=== PATIENT | male | born 1960 | race Caucasian/White ===

== ENCOUNTER → 2020-10-13 | Outpatient (REF) ==
--- NOTE | 2020-10-17 15:52 | SLEEPHOME ---
DATE: 10/13/2020 ORDERED BY: Last Beckett This was a test from [facility]. Diagnostic home sleep testing was performed due to concern for the obstructive sleep apnea syndrome. For testing, a nocturnal T3 respiratory monitoring device was used. Continuous record was made of pulse, oxygen saturation, air flow, chest and abdominal strain, and body position. There was 6 hours and 59 minutes of data reviewed. There was 6 hours and 52 minutes marked as time in bed. During the interval marked time in bed, there were 49 respiratory events identified of 10 seconds in duration or greater for a respiratory event index of 7.1. The events were primarily obstructive. Baseline pulse rate 76 beats per minute. Pulse rate ranged 59-110. Baseline saturation was 88%. Saturations fell to 68%. The pattern was variable. IMPRESSION: Abnormal home sleep testing with repetitive respiratory events and oxygen desaturations to 68% with a respiratory event index of 7.1 is consistent with the obstructive sleep apnea syndrome. RECOMMENDATION: The patient should be encouraged to undergo formal sleep evaluation and would be a good candidate for in-laboratory pressure titration given the profound oxygen desaturation seen.
== END ==
LOC: M SLEEP HO 10-09 10:00
DX: R09.02 Hypoxemia (principal); I25.5 Ischemic cardiomyopathy

== ENCOUNTER → 2021-12-23 | Outpatient (REF) | LOC: M LABCFH 17:10 | DX: Z01.89 Encounter for other specified special examinations (principal) ==

== ENCOUNTER → 2022-08-18 | Outpatient (CLI) | payer MEDICARE, BC | LOC: M SOG 08:06 | PROVIDERS: ATTEND Orthopaedic Surgery | DX: M25.552 Pain in left hip (principal) ==

== ENCOUNTER → 2022-08-25 | Outpatient (CLI) | payer BC, MEDICARE | LOC: M SOG 07:58 | PROVIDERS: ATTEND Orthopaedic Surgery | DX: M25.552 Pain in left hip (principal) ==

== ENCOUNTER → 2022-08-30 | Outpatient (CLI) | payer BC, MEDICARE | LOC: M PLAIMG 10:33 | PROVIDERS: ATTEND Orthopaedic Surgery | DX: M16.12 Unilateral primary osteoarthritis, left hip (principal) ==

== ENCOUNTER → 2022-12-05 | Outpatient (CLI) | payer BC, MEDICARE ==
[~2022-12-05] MED LIST: ALBU2.5V10 INH; AMIO200T49 PO; APAP500T10 PO; CLOP75TA99 PO; ELIQ5TAB PO; FLOM0.4C39 PO; FURO40TA2 PO; GABA-282 PO; METO50TA7 PO; OXYC1TAB23 PO; PANT40TA29 PO; ROPI2TAB3 PO; ROSU40TA4 PO; SPIR1CAP INH; SYMB16INH INH; SYNT137T7 PO; VENTAER INH
== END ==
LOC: M RAD 11:08
PROVIDERS: ATTEND Orthopaedic Surgery
DX: M87.052 Idiopathic aseptic necrosis of left femur (principal)

== ENCOUNTER → 2022-12-13 | Outpatient (CLI) | payer BC, MEDICARE | LOC: M LABSMTC 10:16 | PROVIDERS: ATTEND Anesthesiology | DX: Z01.812 Encounter for preprocedural laboratory examination (principal); Z11.52 Encounter for screening for COVID-19 ==

== ENCOUNTER 2022-12-18 09:35 | Observation (INO) | payer BC, MEDICARE ==
[~2022-12-18] VITALS: Ht 172.7 cm; Wt 92.9 kg
[~2022-12-18 09:35] MED LIST changes: +LIDOCAINE 2% 100MG/5ML SDV (FOR ANES.) As Ordered ONE; +MIDAZOLAM INJ 2MG/2ML VIAL As Ordered ONE; +ONDANSETRON 4MG 2ML VIAL As Ordered ONE; +ROCURONIUM BROMIDE 50MG/5ML VIAL As Ordered ONE; +ROPIVA 100MG/KETOR 15MG/EPINEPHRINE 0.3MG IN NS 50ML SYRINGE PA ONE; +TRANEXAMIC ACID INJection 1,000 MG in NS 100 ML IV ONE; +ceFAZolin SOD 2 GM in IV 1 EA IV ONE; +fentaNYL 250 MCG/5 ML INJECTION As Ordered ONE; +oxyCODONE 5MG TAB PO ONE; +propofoL 200 MG/20 ML VIAL As Ordered ONE
[2022-12-18] MEDS ORDERED: LR 1,000 ML IV SCH ×2 (10:00→15:55)
[2022-12-18] MEDS ORDERED: METF500T13 PO (10:39)
[2022-12-18] MEDS ORDERED: ECOT81TA5 PO (10:39)
[2022-12-18] MEDS ORDERED: METO1TAB7 PO (10:39)
[2022-12-18] MEDS ORDERED: JARD1TAB PO (11:12)
[2022-12-18] MEDS ORDERED: D 101000 PO (11:12)
[2022-12-18] MEDS ORDERED: VALS1TAB66 PO (11:12)
[2022-12-18] MEDS ORDERED: ROPI0.253 PO (11:12)
[2022-12-18] MEDS ORDERED: SPIR-10 PO (11:12)
[2022-12-18] MEDS ORDERED: HOME MED LIST COMPLETE! XX SCH (11:15)
[2022-12-18] MEDS ORDERED: BUPIVACAINE/EPIN 0.25% 30ML VIAL As Ordered ONE (11:59)
[2022-12-18] MEDS ORDERED: TRANEXAMIC ACID 100 MG/ML 10ML VIAL As Ordered ONE (12:00)
[2022-12-18] MEDS ORDERED: VANCOMYCIN 1000MG/20ML VIAL As Ordered ONE (12:00)
[2022-12-18] MEDS ORDERED: KETAMINE HCL 200MG/20ML VIAL As Ordered ONE (12:27)
[2022-12-18] MEDS ORDERED: SUGAMMADEX SODIUM 500 MG/5 ML VIAL (BRIDION) As Ordered ONE (13:43)
[2022-12-18] MEDS ORDERED: ePHEDrine SULFATE 25 MG/5 ML(5MG/ML) SYRINGE As Ordered ONE (13:43)
[2022-12-18] MEDS ORDERED: HYDROmorphone HCL 2MG/ML 1ML VIAL As Ordered ONE (13:43)
[2022-12-18] MEDS ORDERED: ACETAMINOPHEN 1000MG 100ML IV BAG As Ordered ONE (13:48)
[2022-12-18] MEDS ORDERED: ROCURONIUM BROMIDE 50MG/5ML VIAL As Ordered ONE ×2 (13:57→14:20)
[2022-12-18] MEDS ORDERED: PHENYLephrine 500MCG 5ML (100MCG/ML) SYRINGE As Ordered ONE (14:47)
[2022-12-18] MEDS ORDERED: ESMOLOL INJ 100MG/10ML VIAL As Ordered ONE (15:32)
[2022-12-18] MEDS ORDERED: fentaNYL 100 MCG/2 ML INJECTION IV PRN (15:55)
[2022-12-18] MEDS ORDERED: PERCOCET 5MG/325MG TAB PO PRN (15:55)
[2022-12-18] MEDS ORDERED: ALBUTEROL SULFATE 2.5MG/0.5ML INH NEB SOLN INH PRN (15:55)
[2022-12-18] MEDS ORDERED: ALBUTEROL 90 MCG/ACT 8GM HFA INHALER INH PRN (15:55)
[2022-12-18] MEDS ORDERED: ONDANSETRON 4MG 2ML VIAL IV PRN ×2 (15:55)
[2022-12-18] MEDS ORDERED: oxyCODONE 5MG TAB PO PRN (15:55)
[2022-12-18] MEDS ORDERED: DEXTROSE 50% 50ML SYRINGE IV PRN (16:05)
[2022-12-18] MEDS ORDERED: GLUCAGON INJ 1MG VIAL SC PRN (16:05)
[2022-12-18] MEDS ORDERED: GLUCOSE 4GM CHEW TABLET PO PRN (16:05)
[2022-12-18] MEDS: HYDROMORPHONE HCL 0.5 MG/ 0.5 ML SYRINGE IV PRN ×2 (16:17→16:25)
[2022-12-18] MEDS ORDERED: SENNA 8.6 MG TAB (SENOKOT) PO PRN (16:35)
[2022-12-18 17:15] VITALS: BP 121/85
[2022-12-18 17:45] VITALS: BP 126/78
[2022-12-18] MEDS: INSULIN LISPRO (NovoLOG) PER UNIT SC SCH (17:51)
[2022-12-18 18:45] VITALS: BP 124/85
[2022-12-18 19:47] VITALS: BP 122/85
[2022-12-18] MEDS: ceFAZolin SOD 2 GM in IV 1 EA IV SCH (20:27)
[2022-12-18] MEDS: DOCUSATE SODIUM 100MG CAPSULE PO SCH (20:28)
[2022-12-18] MEDS: ACETAMINOPHEN TAB 650MG DOSE (2X325MG) PO PRN (20:28)
[2022-12-18 20:51] VITALS: BP 123/84
[2022-12-18] MEDS ORDERED: INSULIN LISPRO (NovoLOG) PER UNIT SC SCH (21:00)
[2022-12-18] MEDS ORDERED: APIXABAN 5 MG TAB (ELIQUIS) PO SCH (21:00)
[2022-12-18] MEDS ORDERED: ROSUVASTATIN 10 MG TAB (CRESTOR) PO SCH (21:00)
[2022-12-18] MEDS ORDERED: rOPINIRole 0.25 MG TAB(REQUIP) PO SCH (21:00)
[2022-12-18 21:57] VITALS: BP 91/65
[2022-12-19] MEDS: PERCOCET 5MG/325MG TAB PO PRN ×2 (01:41→16:41)
[2022-12-19 02:33] VITALS: BP 102/65
[2022-12-19 03:24] VITALS: O2SAT 96
[2022-12-19] MEDS: ceFAZolin SOD 2 GM in IV 1 EA IV SCH (05:20)
[2022-12-19 06:00] VITALS: BP 102/64
[2022-12-19] MEDS ORDERED: LEVOTHYROXINE 137MCG TABLET (0.137MG) PO SCH (06:00)
[2022-12-19 06:04] LABS: HEMATOCRIT 37.5 % (42.0-52.0); HEMOGLOBIN 12.6 g/dl (13.5-17.5); MEAN CORPUSCULAR HEMOGLOBIN 30.7 pg (27.0-33.0); MEAN CORPUSCULAR HGB CONC 33.6 g/dl (32.0-36.5); MEAN CORPUSCULAR VOLUME 91.5 fl (80.0-96.0); PLATELET COUNT, AUTOMATED 197 10^3/uL (150-450); WHITE BLOOD COUNT 17.4 10^3/uL (4.0-10.0)
[2022-12-19 06:18] LABS: INR 1.18; PROTHROMBIN TIME 15.2 SECONDS (12.5-14.5)
[2022-12-19] MEDS: ACETAMINOPHEN TAB 650MG DOSE (2X325MG) PO PRN (06:25)
[2022-12-19 06:45] LABS: ALBUMIN 3.3 G/DL (3.2-5.2); ALKALINE PHOSPHATASE 65 U/L (46-116); ALT/SGPT 32 U/L (7.0-40); AST/SGOT 35 U/L (<34); BILIRUBIN,TOTAL 0.5 MG/DL (0.3-1.2); BLOOD UREA NITROGEN 33 MG/DL (9-23); CALCIUM LEVEL 9.4 MG/DL (8.3-10.6); CARBON DIOXIDE LEVEL 23 MMOL/L (20-31); CHLORIDE LEVEL 105 MMOL/L (98-107); CREATININE FOR GFR 1.12 MG/DL (0.70-1.30); GLOMERULAR FILTRATION RATE > 60.0 (>49); GLUCOSE, FASTING 189 MG/DL (74-106); POTASSIUM SERUM 4.3 MMOL/L (3.5-5.1); SODIUM LEVEL 137 MMOL/L (136-145); TOTAL PROTEIN 6.1 G/DL (5.7-8.2)
[2022-12-19] MEDS ORDERED: PERCOCET 5MG/325MG TAB PO ONE (07:10)
[2022-12-19] MEDS ORDERED: KETOROLAC 30 MG/ML 1ML VIAL IV ONE (07:10)
[2022-12-19] MEDS ORDERED: MIRA3350 PO (07:14)
[2022-12-19] MEDS ORDERED: SENO8.6T10 PO (07:14)
[2022-12-19] MEDS ORDERED: PERCOCET PO (07:14)
[2022-12-19] MEDS ORDERED: MOM30SS2 PO (07:14)
[2022-12-19] MEDS: DOCUSATE SODIUM 100MG CAPSULE PO SCH (08:23)
[2022-12-19] MEDS: INSULIN LISPRO (NovoLOG) PER UNIT SC SCH ×2 (08:27→12:53)
[2022-12-19 08:38] VITALS: BP 128/70
[2022-12-19] MEDS ORDERED: FERROUS SULFATE 325MG TAB PO SCH (09:00)
[2022-12-19] MEDS ORDERED: AMIODARONE 100MG TABLET (PACERONE) PO SCH (09:00)
[2022-12-19] MEDS ORDERED: SENOKOT S TAB PO SCH (09:00)
[2022-12-19] MEDS ORDERED: APIXABAN 5 MG TAB (ELIQUIS) PO SCH (09:00)
[2022-12-19] MEDS ORDERED: ASCORBIC ACID 500 MG TAB PO SCH (09:00)
[2022-12-19] MEDS ORDERED: CLOPIDOGREL 75 MG TAB PO SCH (09:00)
[2022-12-19] MEDS ORDERED: SPIRONOLACTONE 25 MG TAB PO SCH (09:00)
[2022-12-19] MEDS ORDERED: PANTOPRAZOLE 40MG TAB (PROTONIX) PO SCH (09:00)
[2022-12-19] MEDS ORDERED: METOPROLOL SUCC (TopROL XL) 50MG **XL** TAB PO SCH (09:00)
[2022-12-19] MEDS ORDERED: VALSARTAN 80 MG TAB (DIOVAN) PO SCH (09:00)
[2022-12-19] MEDS ORDERED: FUROSEMIDE 40 MG TAB PO SCH (09:00)
[2022-12-19 14:00] VITALS: BP 113/64
== END 2022-12-19 17:40 | disposition home or self-care (01) ==
LOC: M SDC 09:35 → M MS5PR 09:36
PROVIDERS: ADMIT Orthopaedic Surgery; ATTEND Orthopaedic Surgery
DX: M87.852 Other osteonecrosis, left femur (principal); I48.91 Unspecified atrial fibrillation; I50.9 Heart failure, unspecified; E03.9 Hypothyroidism, unspecified; I11.9 Hypertensive heart disease without heart failure; K70.30 Alcoholic cirrhosis of liver without ascites; K21.9 Gastro-esophageal reflux disease without esophagitis; E11.9 Type 2 diabetes mellitus without complications; G47.33 Obstructive sleep apnea (adult) (pediatric); I25.10 Atherosclerotic heart disease of native coronary artery without angina pectoris; J44.9 Chronic obstructive pulmonary disease, unspecified; Z88.8 Allergy status to other drugs, medicaments and biological substances; Z79.01 Long term (current) use of anticoagulants; Z79.82 Long term (current) use of aspirin; Z79.84 Long term (current) use of oral hypoglycemic drugs
CPT/HCPCS: 27130; 36415; 73502; 76000; 80053; 80069; 85027; 85610; 88304; 88311; 96365; 96366; 97116; 97161; 97165; 97530; 97535; C1776; J0131; J0690; J1100; J1170; J1815; J1885; J2250; J2370; J2405; J3010; J3370; S0020; S2900

== ENCOUNTER → 2022-12-29 | Outpatient (CLI) | payer BC, MEDICARE ==
[~2022-12-29] MED LIST changes: +D 101000 PO; +ECOT81TA5 PO; +JARD1TAB PO; -LIDOCAINE 2% 100MG/5ML SDV (FOR ANES.) As Ordered ONE; +METF500T13 PO; +METO1TAB7 PO; -MIDAZOLAM INJ 2MG/2ML VIAL As Ordered ONE; +MIRA3350 PO; +MOM30SS2 PO; -ONDANSETRON 4MG 2ML VIAL As Ordered ONE; +PERCOCET PO; -ROCURONIUM BROMIDE 50MG/5ML VIAL As Ordered ONE; +ROPI0.253 PO; -ROPIVA 100MG/KETOR 15MG/EPINEPHRINE 0.3MG IN NS 50ML SYRINGE PA ONE; +SENO8.6T10 PO; +SPIR-10 PO; -TRANEXAMIC ACID INJection 1,000 MG in NS 100 ML IV ONE; +VALS1TAB66 PO; -ceFAZolin SOD 2 GM in IV 1 EA IV ONE; -fentaNYL 250 MCG/5 ML INJECTION As Ordered ONE; -oxyCODONE 5MG TAB PO ONE; -propofoL 200 MG/20 ML VIAL As Ordered ONE
== END ==
LOC: M SOG 07:56
PROVIDERS: ATTEND Orthopaedic Surgery
DX: Z47.89 Encounter for other orthopedic aftercare (principal); Z96.642 Presence of left artificial hip joint

== ENCOUNTER → 2023-01-12 | Outpatient (CLI) | payer BC, MEDICARE | LOC: M SOG 08:00 | PROVIDERS: ATTEND Orthopaedic Surgery | DX: Z47.1 Aftercare following joint replacement surgery (principal); Z96.642 Presence of left artificial hip joint ==

== ENCOUNTER → 2023-03-14 | Outpatient (CLI) | payer BC, MEDICARE | LOC: M SOG 08:13 | PROVIDERS: ATTEND Orthopaedic Surgery | DX: Z96.642 Presence of left artificial hip joint (principal) ==

== ENCOUNTER → 2023-09-26 | Outpatient (CLI) | payer BC, MEDICARE ==
[~2023-09-26] MED LIST changes: -ROPI0.253 PO; -ROPI2TAB3 PO; +ROPI2TAB46 PO; +ROPI5TAB19 PO
== END ==
LOC: M SOG 08:35
PROVIDERS: ATTEND Orthopaedic Surgery
DX: Z53.9 Procedure and treatment not carried out, unspecified reason (principal)

== ENCOUNTER 2024-03-10 17:18 | Inpatient (IN) | payer BC, MEDICARE ==
[~2024-03-10] VITALS: Ht 172.7 cm; Wt 91.2 kg
[~2024-03-10 17:18] MED LIST changes: -ROSU40TA4 PO; +ROSU40TA63 PO
[2024-03-10] MEDS ORDERED: FERR325T19 (17:48)
[2024-03-10] MEDS ORDERED: METO1TAB33 (17:48)
[2024-03-10] MEDS ORDERED: CETI-24 (17:48)
[2024-03-10] MEDS ORDERED: BENZ-18 (17:48)
[2024-03-10] MEDS ORDERED: NITR0.4S14 (17:48)
[2024-03-10] MEDS ORDERED: ROPI1TAB73 (17:48)
[2024-03-10 22:46] LABS: BASO # 0.1 10^3/uL (0.0-0.2); BASO % 0.8 % (0.0-1.0); EOS # 0.1 10^3/uL (0.0-0.5); EOS % 1.6 % (0.0-3.0); HEMATOCRIT 42.2 % (42.0-52.0); HEMOGLOBIN 13.8 g/dl (13.5-17.5); LYMPH # 2.1 10^3/uL (1.5-5.0); LYMPH % 25.5 % (24.0-44.0); MEAN CORPUSCULAR HEMOGLOBIN 31.5 pg (27.0-33.0); MEAN CORPUSCULAR HGB CONC 32.7 g/dl (32.0-36.5); MEAN CORPUSCULAR VOLUME 96.3 fl (80.0-96.0); MONO # 0.7 10^3/uL (0.0-0.8); MONO % 8.5 % (2.0-8.0); NEUTROPHILS # 5.2 10^3/uL (1.5-8.5); NEUTROPHILS % 63.4 % (36.0-66.0); PLATELET COUNT, AUTOMATED 163 10^3/uL (150-450); RED BLOOD COUNT 4.38 10^6/uL (4.30-6.10); WHITE BLOOD COUNT 8.3 10^3/uL (4.0-10.0)
[2024-03-10 23:03] LABS: INR 2.07; PARTIAL THROMBOPLASTIN TIME 39.3 SECONDS (24.8-34.2); PROTHROMBIN TIME 22.6 SECONDS (12.5-14.5)
[2024-03-10 23:13] LABS: LIPASE 48 U/L (12-53)
[2024-03-10 23:14] LABS: CK-MB VALUE MASS < 1.0 NG/ML (<3.6)
[2024-03-10 23:15] LABS: ALBUMIN 2.9 G/DL (3.2-5.2); ALKALINE PHOSPHATASE 74 U/L (46-116); ALT/SGPT 17 U/L (7.0-40); AST/SGOT 35 U/L (<34); BILIRUBIN,DIRECT 0.5 MG/DL (<0.4); BLOOD UREA NITROGEN 32 MG/DL (9-23); CALCIUM LEVEL 8.1 MG/DL (8.3-10.6); CARBON DIOXIDE LEVEL 22 MMOL/L (20-31); CHLORIDE LEVEL 104 MMOL/L (98-107); CREATININE FOR GFR 1.72 MG/DL (0.70-1.30); GLUCOSE, FASTING 105 MG/DL (74-106); POTASSIUM SERUM 4.4 MMOL/L (3.5-5.1); SODIUM LEVEL 137 MMOL/L (136-145); TOTAL PROTEIN 6.7 G/DL (5.7-8.2)
[2024-03-10 23:20] LABS: CPK CREATINE PHOSPHOKINASE 54 U/L (46-171); MB/CK RELATIVE INDEX 1.85 (< OR =4)
[2024-03-11 00:19] LABS: TOTAL PROTEIN,RANDOM URINE 24.9 MG/DL (0.0-14.0)
[2024-03-11 00:24] LABS: CREATININE,RANDOM URINE 84.8 MG/DL
[2024-03-11] MEDS: cefTRIAXone SOD 1 GM in D5W MINI-BAG PLUS 50 ML IV ONE (02:40)
[2024-03-11] MEDS: NS 1,000 ML IV SCH (03:01)
[2024-03-11] MEDS ORDERED: DEXTROSE 50% 50ML SYRINGE IV PRN (03:15)
[2024-03-11] MEDS ORDERED: GLUCOSE 4 GM CHEW PO PRN (03:15)
[2024-03-11] MEDS ORDERED: GLUCAGON INJ 1MG VIAL SC PRN (03:15)
[2024-03-11] MEDS ORDERED: NITR4TASL SL (04:43)
[2024-03-11] MEDS ORDERED: BENZ-18 PO (04:43)
[2024-03-11] MEDS ORDERED: SENN-23 PO (04:43)
[2024-03-11] MEDS ORDERED: SPIR12.9 INH (04:43)
[2024-03-11] MEDS ORDERED: FERR1TAB8 PO (04:43)
[2024-03-11] MEDS ORDERED: ROPI1TAB73 PO (04:43)
[2024-03-11] MEDS ORDERED: TOPR100T PO (04:43)
[2024-03-11] MEDS ORDERED: CETI-24 PO (04:44)
[2024-03-11] MEDS ORDERED: HOME MED LIST COMPLETE! XX SCH (04:45)
[2024-03-11 04:55] VITALS: BP 131/83; TEMP 97.5; O2SAT 96
[2024-03-11] MEDS: LEVOTHYROXINE 137MCG TABLET (0.137MG) PO SCH (06:00)
[2024-03-11] MEDS ORDERED: BENZONATATE 100MG CAPSULE PO PRN (06:00)
[2024-03-11] MEDS ORDERED: ALBUTEROL 90 MCG/ACT 8GM HFA INHALER INH PRN (06:00)
[2024-03-11 07:48] LABS: HEMATOCRIT 42.7 % (42.0-52.0); HEMOGLOBIN 13.7 g/dl (13.5-17.5); MEAN CORPUSCULAR HEMOGLOBIN 31.1 pg (27.0-33.0); MEAN CORPUSCULAR HGB CONC 32.1 g/dl (32.0-36.5); MEAN CORPUSCULAR VOLUME 96.8 fl (80.0-96.0); PLATELET COUNT, AUTOMATED 161 10^3/uL (150-450); RED BLOOD COUNT 4.41 10^6/uL (4.30-6.10); WHITE BLOOD COUNT 7.8 10^3/uL (4.0-10.0)
[2024-03-11 08:16] LABS: BILIRUBIN,TOTAL 0.9 MG/DL (0.3-1.2); CALCIUM LEVEL 7.9 MG/DL (8.3-10.6); CREATININE FOR GFR 1.69 MG/DL (0.70-1.30); GLOMERULAR FILTRATION RATE 43.8 (>49); MAGNESIUM LEVEL 1.8 MG/DL (1.8-2.4); POTASSIUM SERUM 3.9 MMOL/L (3.5-5.1); TOTAL PROTEIN 6.5 G/DL (5.7-8.2)
[2024-03-11 08:27] LABS: PROCALCITONIN 0.13 ng/ml
[2024-03-11] MEDS: INSULIN LISPRO (NovoLOG) PER UNIT SC SCH ×2 (09:28→21:00)
[2024-03-11 10:00] VITALS: BP 121/79; TEMP 97.5; O2SAT 97
[2024-03-11] MEDS: PANTOPRAZOLE 40MG TAB (PROTONIX) PO SCH (10:41)
[2024-03-11] MEDS: FERROUS SULFATE 325MG TAB PO SCH (10:41)
[2024-03-11] MEDS: APIXABAN 5 MG TAB (ELIQUIS) PO SCH (10:42)
[2024-03-11] MEDS: CLOPIDOGREL 75 MG TAB PO SCH (10:42)
[2024-03-11] MEDS: METOPROLOL SUCC (TopROL XL) 100MG *XL* TAB PO SCH (10:42)
[2024-03-11 11:34] VITALS: O2SAT 96
[2024-03-11] MEDS: FUROSEMIDE 40MG/4ML VIAL IV SCH (13:12)
[2024-03-11] MEDS: MAGNESIUM OXIDE 400MG TAB (MAG-OX) PO SCH (13:12)
[2024-03-11] MEDS: POTASSIUM CHLORIDE 10MEQ SR TABLET PO SCH (13:12)
[2024-03-11 14:00] VITALS: BP 128/96; TEMP 97.7; O2SAT 98
[2024-03-11 16:00] VITALS: BP 135/88; TEMP 97.6; O2SAT 98
[2024-03-11] MEDS: ONDANSETRON 4MG 2ML VIAL IV PRN (21:03)
[2024-03-11] MEDS: CETIRIZINE (ZyrTEC) 10 MG TAB PO SCH (21:03)
[2024-03-11] MEDS: rOPINIRole 1MG TAB PO SCH (21:03)
[2024-03-11] MEDS: ROSUVASTATIN 10 MG TAB (CRESTOR) PO SCH (21:04)
[2024-03-11 22:00] VITALS: BP 116/80; TEMP 97.9; O2SAT 96
[2024-03-11] MEDS ORDERED: cefTRIAXone SOD 1 GM in D5W MINI-BAG PLUS 50 ML IV SCH (23:00)
[2024-03-12] VITALS (7 sets, daily range): BP systolic 103–116; BP diastolic 58–84; TEMP 97.5–97.9; O2SAT 88–98
[2024-03-12 07:04] LABS: BASO # 0.1 10^3/uL (0.0-0.2); BASO % 1.1 % (0.0-1.0); EOS # 0.2 10^3/uL (0.0-0.5); EOS % 2.4 % (0.0-3.0); HEMOGLOBIN 13.8 g/dl (13.5-17.5); LYMPH # 2.1 10^3/uL (1.5-5.0); LYMPH % 27.2 % (24.0-44.0); MEAN CORPUSCULAR HEMOGLOBIN 31.1 pg (27.0-33.0); MEAN CORPUSCULAR HGB CONC 32.1 g/dl (32.0-36.5); MEAN CORPUSCULAR VOLUME 96.8 fl (80.0-96.0); MONO # 0.7 10^3/uL (0.0-0.8); MONO % 9.7 % (2.0-8.0); NEUTROPHILS # 4.5 10^3/uL (1.5-8.5); NEUTROPHILS % 59.2 % (36.0-66.0); PLATELET COUNT, AUTOMATED 155 10^3/uL (150-450); RED BLOOD COUNT 4.44 10^6/uL (4.30-6.10); WHITE BLOOD COUNT 7.6 10^3/uL (4.0-10.0)
[2024-03-12 07:44] LABS: CALCIUM LEVEL 8.1 MG/DL (8.3-10.6); CREATININE FOR GFR 1.81 MG/DL (0.70-1.30); GLOMERULAR FILTRATION RATE 40.5 (>49); POTASSIUM SERUM 4.1 MMOL/L (3.5-5.1)
[2024-03-12] MEDS: TIOTROPIUM INHALER/CAPSULE (SPIRIVA) INH SCH (08:17)
[2024-03-12] MEDS: SPIRONOLACTONE 25 MG TAB PO ONE (13:25)
[2024-03-12] MEDS: DAPAGLIFLOZIN PROPANEDIOL 10MG TABLET (FARXIGA) PO SCH (21:03)
[2024-03-13] VITALS (7 sets, daily range): BP systolic 94–115; BP diastolic 61–77; TEMP 97.5–98.2; O2SAT 92–98
[2024-03-13 07:01] LABS: BASO # 0.1 10^3/uL (0.0-0.2); BASO % 0.9 % (0.0-1.0); EOS # 0.2 10^3/uL (0.0-0.5); EOS % 2.5 % (0.0-3.0); HEMATOCRIT 41.4 % (42.0-52.0); HEMOGLOBIN 13.5 g/dl (13.5-17.5); LYMPH # 1.8 10^3/uL (1.5-5.0); LYMPH % 21.6 % (24.0-44.0); MEAN CORPUSCULAR HEMOGLOBIN 31.5 pg (27.0-33.0); MEAN CORPUSCULAR HGB CONC 32.6 g/dl (32.0-36.5); MEAN CORPUSCULAR VOLUME 96.7 fl (80.0-96.0); MONO # 0.8 10^3/uL (0.0-0.8); MONO % 9.9 % (2.0-8.0); NEUTROPHILS # 5.3 10^3/uL (1.5-8.5); NEUTROPHILS % 64.7 % (36.0-66.0); PLATELET COUNT, AUTOMATED 145 10^3/uL (150-450); RED BLOOD COUNT 4.28 10^6/uL (4.30-6.10); WHITE BLOOD COUNT 8.2 10^3/uL (4.0-10.0)
[2024-03-13 07:24] LABS: CALCIUM LEVEL 8.4 MG/DL (8.3-10.6); CREATININE FOR GFR 1.74 MG/DL (0.70-1.30); GLOMERULAR FILTRATION RATE 42.4 (>49)
[2024-03-13] MEDS: SPIRONOLACTONE 25 MG TAB PO SCH (08:42)
[2024-03-13] MEDS: AMIODARONE 200 MG TAB (PACERONE) PO SCH (12:07)
[2024-03-13] MEDS: FUROSEMIDE 20MG/2ML VIAL IV SCH (13:38)
[2024-03-13] MEDS ORDERED: diphenhydrAMINE 50MG/ML VIAL IM PRN (21:55)
[2024-03-13] MEDS: RAMELTEON 8 MG TAB (ROZEREM) PO PRN (22:11)
[2024-03-14 05:50] VITALS: BP 94/63; TEMP 97.9
[2024-03-14 06:43] LABS: BASO # 0.1 10^3/uL (0.0-0.2); BASO % 0.7 % (0.0-1.0); EOS # 0.1 10^3/uL (0.0-0.5); EOS % 1.2 % (0.0-3.0); HEMATOCRIT 41.7 % (42.0-52.0); HEMOGLOBIN 13.8 g/dl (13.5-17.5); LYMPH # 1.9 10^3/uL (1.5-5.0); LYMPH % 25.1 % (24.0-44.0); MEAN CORPUSCULAR HEMOGLOBIN 31.9 pg (27.0-33.0); MEAN CORPUSCULAR HGB CONC 33.1 g/dl (32.0-36.5); MEAN CORPUSCULAR VOLUME 96.5 fl (80.0-96.0); MONO # 0.9 10^3/uL (0.0-0.8); MONO % 11.6 % (2.0-8.0); NEUTROPHILS # 4.5 10^3/uL (1.5-8.5); PLATELET COUNT, AUTOMATED 161 10^3/uL (150-450); RED BLOOD COUNT 4.32 10^6/uL (4.30-6.10); WHITE BLOOD COUNT 7.4 10^3/uL (4.0-10.0)
[2024-03-14 07:07] LABS: CALCIUM LEVEL 8.9 MG/DL (8.3-10.6); CREATININE FOR GFR 1.94 MG/DL (0.70-1.30); GLOMERULAR FILTRATION RATE 37.4 (>49); MAGNESIUM LEVEL 2.2 MG/DL (1.8-2.4); POTASSIUM SERUM 4.8 MMOL/L (3.5-5.1)
[2024-03-14 10:07] VITALS: BP 98/71; TEMP 97.5; O2SAT 96
[2024-03-14] MEDS ORDERED: HYOSCYAMINE SULFATE 0.125 MG SUBL TABLET PO PRN (11:30)
[2024-03-14] MEDS: ALPRAZolam 0.25 MG TAB PO PRN (18:49)
[2024-03-15] MEDS: TORSEMIDE 20 MG TAB PO SCH (08:01)
[2024-03-15] MEDS: SENOKOT S TAB PO PRN (14:48)
[2024-03-16] MEDS: MORPHINE 10MG/0.5ML ORAL CONCENTRATE SOLUTION U/D SL PRN (07:23)
[2024-03-16 14:00] VITALS: BP 102/60
[2024-03-17] MEDS: ALBUTEROL SULFATE 2.5MG/0.5ML INH NEB SOLN INH PRN (02:37)
[2024-03-18] MEDS ORDERED: HYOS125TA PO (07:26)
[2024-03-18] MEDS ORDERED: MORP1SOL5 PO (07:26)
[2024-03-18] MEDS ORDERED: ALPR0.25 PO (07:26)
[2024-03-18] MEDS ORDERED: ONDA-83 PO (07:26)
[2024-03-18] MEDS ORDERED: MIRA3350 PO (09:43)
[2024-03-18] MEDS ORDERED: SENN-186 PO (09:43)
[2024-03-18] MEDS: MIRALAX *UNIT DOSE* 17GM PACKET PO ONE (10:10)
== END 2024-03-18 11:03 | disposition hospice, home (50) | DRG 194 ==
LOC: M ED 17:18 → M ED INP 03-11 02:35 → M MSPAV 03-11 04:55
PROVIDERS: ADMIT Preventive Medicine Undersea and Hyperbaric Medicine; ATTEND Student in an Organized Health Care Education/Training Program
DX: I13.0 Hypertensive heart and chronic kidney disease with heart failure and stage 1 through stage 4 chronic kidney disease, or unspecified chronic kidney disease (principal); N17.9 Acute kidney failure, unspecified; J96.11 Chronic respiratory failure with hypoxia; E11.22 Type 2 diabetes mellitus with diabetic chronic kidney disease; K70.31 Alcoholic cirrhosis of liver with ascites; I48.20 Chronic atrial fibrillation, unspecified; G25.81 Restless legs syndrome; Z99.81 Dependence on supplemental oxygen; Z79.01 Long term (current) use of anticoagulants; Z95.1 Presence of aortocoronary bypass graft; E03.9 Hypothyroidism, unspecified; I25.10 Atherosclerotic heart disease of native coronary artery without angina pectoris; I25.5 Ischemic cardiomyopathy; J44.9 Chronic obstructive pulmonary disease, unspecified; K21.9 Gastro-esophageal reflux disease without esophagitis; N18.9 Chronic kidney disease, unspecified; R10.11 Right upper quadrant pain; Z95.810 Presence of automatic (implantable) cardiac defibrillator; K59.00 Constipation, unspecified; G47.33 Obstructive sleep apnea (adult) (pediatric); R91.1 Solitary pulmonary nodule; M19.90 Unspecified osteoarthritis, unspecified site; Z88.8 Allergy status to other drugs, medicaments and biological substances; Z79.899 Other long term (current) drug therapy; D50.9 Iron deficiency anemia, unspecified; I50.23 Acute on chronic systolic (congestive) heart failure